=== PATIENT | female | born 1960 | race Caucasian/White ===

== ENCOUNTER → 2016-10-28 | Outpatient (CLI) | payer OTHER ==
[~2016-10-28] MED LIST: ASPIRIN 32325 MG/TA1 PO; MACROBID 1100 MG/CAP PO; MOTRIN 600600 MG/TAB PO; NORCO 325 MG-51 TAB PO; PAXIL CR25 MG; PAXIL10 MG PO; XANAX1 MG PO
== END ==
LOC: RAD 15:27
DX: R10.9 Unspecified abdominal pain (principal); M54.9 Dorsalgia, unspecified; D30.02 Benign neoplasm of left kidney; D30.01 Benign neoplasm of right kidney
CPT/HCPCS: Q9967

== ENCOUNTER 2018-10-10 12:09 | Emergency (ER) | payer OTHER ==
[~2018-10-10] VITALS: Ht 162.6 cm; Wt 72.7 kg
[2018-10-10] MEDS ORDERED: VIBRAMYCIN HYC100 MG PO (13:00)
[2018-10-10] MEDS ORDERED: ALBUTEROL2.5 MG/3 M IH (13:01)
[2018-10-10 13:11] LABS: ALBUMIN 4.5 g/dL (3.5-5.0); CALCIUM 9.4 mg/dL (8.4-10.2); POTASSIUM 4.2 mmol/L (3.6-5.0); TOTAL BILIRUBIN 0.6 mg/dL (0.2-1.3); TOTAL PROTEIN 7.5 g/dL (6.3-8.2)
[2018-10-10 13:12] LABS: HEMATOCRIT 44.3 % (37.0-47.0); HEMOGLOBIN 14.2 g/dL (12.5-16.0); MEAN CELL VOLUME 92 fl (78-100); MEAN CORPUSCULAR HEMOGLOBIN 30 pg (27-31); MEAN CORPUSCULAR HGB CONC 32 g/dL (33-37); MEAN PLATELET VOLUME 10.7 fl (7.4-10.4); PLATELET COUNT 211 K/mm3 (130-400); RED BLOOD COUNT 4.82 M/mm3 (4.10-5.30); RED CELL DISTRIBUTION WIDTH 13.4 % (11.5-14.5); WHITE BLOOD COUNT 9.5 K/mm3 (4.8-10.8)
[2018-10-10 13:23] LABS: LYMPHOCYTE 15 % (20-51); MONOCYTE 3 % (3-10); NEUTROPHILS 81 % (42-75)
[2018-10-10 14:46] VITALS: BP 152/80
== END 2018-10-10 14:44 | disposition home or self-care (01) ==
LOC: ED 12:09
PROVIDERS: Nurse Practitioner Primary Care
DX: F41.9 Anxiety disorder, unspecified (principal); R07.89 Other chest pain; Z79.899 Other long term (current) drug therapy; K21.9 Gastro-esophageal reflux disease without esophagitis; F17.210 Nicotine dependence, cigarettes, uncomplicated; Z79.82 Long term (current) use of aspirin

== ENCOUNTER 2019-09-29 14:13 | Emergency (ER) | payer OTHER ==
[~2019-09-29 14:13] MED LIST changes: +ALBUTEROL2.5 MG/3 M IH; +VIBRAMYCIN HYC100 MG PO
[2019-09-29 16:55] VITALS: BP 128/82
== END 2019-09-29 16:57 | disposition home or self-care (01) ==
LOC: ED 14:13
DX: S93.492A Sprain of other ligament of left ankle, initial encounter (principal); F41.9 Anxiety disorder, unspecified; F32.9 Major depressive disorder, single episode, unspecified; J44.9 Chronic obstructive pulmonary disease, unspecified; X50.1XXA Overexertion from prolonged static or awkward postures, initial encounter; Y92.009 Unspecified place in unspecified non-institutional (private) residence as the place of occurrence of the external cause
CPT/HCPCS: J1885; L4386